=== PATIENT | male | born 1935 | race Caucasian/White ===

== ENCOUNTER 2019-03-07 09:01 | Observation (INO) | payer MEDICARE, BC ==
[2019-03-07] MEDS ORDERED: HYDROmorphone 0.5 MG/0.5 ML Syringe IVPUSH PRN (09:29)
[2019-03-07] MEDS ORDERED: Sodium Chloride 0.9% 1,000 ML IV SCH (09:45)
[2019-03-07 09:52] LABS: CHLORIDE,CL 97 mmol/L (98-107); SODIUM,NA 137 mmol/L (136-145)
--- NOTE | 2019-03-07 10:12 | EDM.PDOC ---
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 family would like him at [facility] with possible Onset: Gradual Duration: Week(s):, Getting Worse Location: Reports: Back Quality: Reports: Ache, Sharp Severity: Severe Improves with: Reports: Medication Worsens with: Reports: None Context: Reports: Activity Associated Symptoms: Reports: No Other Symptoms (`) - Related Data Allergies Allergy/AdvReac Type Severity Reaction Status Date / Time adhesive Allergy Rash Verified 03/07/19 09:45 metoprolol Allergy Bradycardia Verified 03/07/19 09:45 Home Meds: Home Meds atorvaSTATin Calcium [Lipitor] 40 mg PO BEDTIME 03/07/19 [History] ED ROS GENERAL - Review of Systems Review Of Systems: See Below Constitutional: Reports: Weakness, Fatigue, Other HEENT: Reports: No Symptoms Respiratory: Reports: Shortness of Breath (Shortness of breath was noted when he came in once he settled down he is much), Other (Back pain) Cardiovascular: Reports: No Symptoms Endocrine: Reports: Other (History of borderline diabetic) GI/Abdominal: Reports: No Symptoms : Reports: No Symptoms Musculoskeletal: Reports: Back Pain Skin: Reports: No Symptoms Neurological: Reports: Difficulty Walking, Weakness Psychiatric: Reports: Confusion, Hallucinations Hematologic/Lymphatic: Reports: No Symptoms ED EXAM, GENERAL - Physical Exam Exam: See Below Course - Vital Signs Last Recorded V/S: Last Vital Signs Temp 97.0 F 03/07/19 09:05 Pulse 89 03/07/19 09:05 Resp 20 03/07/19 09:05 BP 117/66 03/07/19 09:05 Pulse Ox 93 L 03/07/19 09:05 - Orders/Labs/Meds Orders: Active Orders 24 hr Category Date Time Status HYDROmorphone [Dilaudid] Med 03/07/19 09:29 Active 0.5 mg IVPUSH Q1H PRN Sodium Chloride 0.9% [Normal Saline] 1,000 ml Med 03/07/19 09:45 Active IV ASDIRECTED Sodium Chloride 0.9% [Saline Flush] Med 03/07/19 09:32 Active 10 ml FLUSH ASDIRECTED PRN Saline Lock Insert [OM.PC] Stat Oth 03/07/19 09:32 Ordered Medication Orders Hydromorphone HCl (Dilaudid) 0.5 mg IVPUSH Q1H PRN PRN Reason: Prostatic cancer Last Admin: 03/07/19 09:54 Dose: 0.5 mg Sodium Chloride (Normal Saline) 1,000 mls @ 150 mls/hr IV ASDIRECTED BRIAN Sodium Chloride (Saline Flush) 10 ml FLUSH ASDIRECTED PRN PRN Reason: Keep Vein Open Labs: Laboratory Tests 03/07/19 03/07/19 Range/Units 09:25 09:25 WBC 5.2 (4.0-10.2) K/uL RBC 4.10 L (4.33-5.41) M/uL Hgb 12.4 L D (13.1-16.8) g/dL Hct 36.0 L (39.0-49.0) % MCV 87.8 D (84.0-98.0) fL MCH 30.2 (28.2-33.3) pg MCHC 34.4 (31.7-36.0) g/dL RDW 12.5 (11.2-14.1) % Plt Count 190 (150-350) K/uL Neut % (Auto) 65.2 (45.0-80.0) % Lymph % (Auto) 19.4 (10.0-50.0) % [place] % (Auto) 14.8 H (2.0-14.0) % Eos % (Auto) 0.4 (0.0-5.0) % Baso % (Auto) 0.2 (0.0-2.0) % Neut # (Auto) 3.36 (1.40-7.00) K/uL Lymph # (Auto) 1.00 (0.50-3.50) K/uL [place] # (Auto) 0.76 (0.00-1.00) K/uL Eos # (Auto) 0.02 (0.00-0.50) K/uL Baso # (Auto) 0.01 (0.00-0.20) K/uL Sodium 137 (136-145) mmol/L Potassium 3.8 (3.5-5.1) mmol/L Chloride 97 L (98-107) mmol/L Carbon Dioxide 24.2 (21.0-32.0) mmol/L BUN 21 H (7-18) mg/dL Creatinine 1.14 (0.51-1.17) mg/dL Est Cr Clr Drug Dosing 51.58 mL/min Estimated GFR (MDRD) > 60 mL/min Glucose 114 H (74-106) mg/dL Calcium 13.1 H* D (8.5-10.1) mg/dL Total Bilirubin 1.2 H (0.2-1.0) mg/dL AST 41 H (15-37) U/L ALT 22 (12-78) U/L Alkaline Phosphatase 194 H (46-116) IU/L C-Reactive Protein 1.0 H (<=0.9) mg/dL Total Protein 7.6 (6.4-8.2) g/dL Albumin 3.7 (3.4-5.0) g/dL Meds: Medications Generic Name Dose Route Start Last Admin Trade Name Freq PRN Reason Stop Dose Admin Hydromorphone HCl 0.5 mg 03/07/19 09:29 03/07/19 09:54 Dilaudid IVPUSH 0.5 mg Q1H PRN Administration Prostatic cancer Sodium Chloride 1,000 mls @ 150 mls/hr 03/07/19 09:45 Normal Saline IV ASDIRECTED BRIAN Sodium Chloride 10 ml 03/07/19 09:32 Saline Flush FLUSH ASDIRECTED PRN Keep Vein Open Departure - Departure Time of Disposition: 10:27 Disposition: Refer to Observation Condition: Poor Clinical Impression: Chronic back pain, Prostate cancer metastatic to bone - Discharge Information *PRESCRIPTION DRUG MONITORING PROGRAM REVIEWED*: No *COPY OF PRESCRIPTION DRUG MONITORING REPORT IN PATIENT OMARI: No Referrals: Shawnee Rodríguez PA-C [Primary Care Provider] - - Problem List & Annotations (1) Chronic back pain SNOMED Code(s): 856771104 Code(s): M54.9 - DORSALGIA, UNSPECIFIED; G89.29 - OTHER CHRONIC PAIN Status : Acute Current Visit: Yes Qualifiers: Back pain location: low back pain Back pain laterality: midline Sciatica presence: without sciatica Qualified Code(s): M54.5 - Low back pain; G89.29 - Other chronic pain - Problem List Review Problem List Initiated/Reviewed/Updated: Yes - My Orders Last 24 Hours: My Active Orders 03/07/19 09:29 HYDROmorphone [Dilaudid] 0.5 mg IVPUSH Q1H PRN 03/07/19 09:32 Sodium Chloride 0.9% [Saline Flush] 10 ml FLUSH ASDIRECTED PRN Saline Lock Insert [OM.PC] Stat 03/07/19 09:45 Sodium Chloride 0.9% [Normal Saline] 1,000 ml IV ASDIRECTED - Assessment/Plan Last 24 Hours: My Active Orders 03/07/19 09:29 HYDROmorphone [Dilaudid] 0.5 mg IVPUSH Q1H PRN 03/07/19 09:32 Sodium Chloride 0.9% [Saline Flush] 10 ml FLUSH ASDIRECTED PRN Saline Lock Insert [OM.PC] Stat 03/07/19 09:45 Sodium Chloride 0.9% [Normal Saline] 1,000 ml IV ASDIRECTED Plan: Patient will be admitted to observation and attempts to place him in a long-term once stable
[2019-03-07] MEDS ORDERED: IBUPROFEN 400 MG PO PRN (11:44)
[2019-03-07] MEDS ORDERED: Nitroglycerin 0.4 MG Tab.SL SL PRN (11:44)
[2019-03-07] MEDS ORDERED: Acetaminophen/HYDROcodone 325-5 MG Tab PO PRN (11:44)
[2019-03-07] MEDS ORDERED: Warfarin 5 MG Tab PO SCH ×2 (11:45→18:00)
[2019-03-07] MEDS ORDERED: Sodium Chloride 0.9% 500 ML IV SCH (11:45)
[2019-03-07] MEDS: Ondansetron 4 MG/2 ML SDV IVPUSH SCH ×2 (12:09→16:48)
[2019-03-07] MEDS: HYDROmorphone 0.5 MG/0.5 ML Syringe IVPUSH PRN ×3 (12:12→16:17)
[2019-03-07] MEDS ORDERED: Ibuprofen 400 MG Tab PO PRN (13:29)
[2019-03-07] MEDS: Sodium Chloride 0.9% 1,000 ML IV SCH (16:49)
[2019-03-07] MEDS ORDERED: Losartan 50 MG Tab PO SCH (18:00)
[2019-03-07] MEDS ORDERED: atorvaSTATin 40 MG Tab PO SCH (18:00)
[2019-03-07] MEDS ORDERED: Enoxaparin 40 MG/0.4 ML Syringe SUBCUT ONE (20:32)
[2019-03-07] MEDS: levETIRAcetam 500 MG Tab PO SCH (21:29)
[2019-03-07] MEDS: Oxybutynin 5 MG Tab PO SCH (21:29)
[2019-03-07 23:58] VITALS: PULSE 60
[2019-03-08] MEDS: Ondansetron 4 MG/2 ML SDV IVPUSH SCH ×4 (00:02→12:50)
[2019-03-08] MEDS: HYDROmorphone 0.5 MG/0.5 ML Syringe IVPUSH PRN ×4 (01:02→12:22)
[2019-03-08] MEDS: Sodium Chloride 0.9% 1,000 ML IV SCH (03:03)
[2019-03-08 07:22] VITALS: BP 186/67
[2019-03-08] MEDS: Sodium Chloride 0.9% 10 ML Syringe FLUSH PRN ×2 (07:53→12:22)
[2019-03-08] MEDS ORDERED: Lactobacillus Rhamnosus GG (Probiotic) Cap PO SCH (08:00)
[2019-03-08] MEDS ORDERED: Garlic [Garlic] 1,000 MG PO SCH (08:00)
[2019-03-08] MEDS ORDERED: Non-Formulary Medication 1 Each (Isosorbide Mononitrate [Isosorbide Mononitrate Er] 120 MG PO SCH (08:00)
[2019-03-08] MEDS ORDERED: Non-Formulary Medication 1 Each (L.Acidoph,Paracasei, B.Lactis [Probiotic] 1 CAP) PO SCH (08:00)
[2019-03-08] MEDS ORDERED: Isosorbide Mononitrate 60 MG Tab.ER PO SCH (08:00)
[2019-03-08] MEDS: levETIRAcetam 500 MG Tab PO SCH (08:16)
[2019-03-08] MEDS: Oxybutynin 5 MG Tab PO SCH (08:17)
--- NOTE | 2019-03-08 09:21 | PCM.DCSUM1 ---
Discharge Summary - Hospital Course Diagnosis: Stroke: No - Discharge Data Discharge Date: 03/08/19 Discharge Disposition: Home, Self-Care 01 Condition: Good - Referral to Home Health Primary Care Physician: Shawnee Rodríguez PA-C - Discharge Diagnosis/Problem(s) (1) Chronic back pain SNOMED Code(s): 611970361 ICD Code: M54.9 - DORSALGIA, UNSPECIFIED; G89.29 - OTHER CHRONIC PAIN Status: Acute Current Visit: Yes Qualifiers: Back pain location: low back pain Back pain laterality: midline Sciatica presence: without sciatica Qualified Code(s): M54.5 - Low back pain; G89.29 - Other chronic pain - Patient Summary/Data Hospital Course: Patient was admitted to the hospital for pain control during his hospital stay it was noted that the patient was retaining significant amount of urine and we did decide to put a [place] catheter for comfort care at this time pain seems to be controlled we'll send him to [place] with Dilaudid this may be needed this may need to be adjusted if breakthrough pain - Patient Instructions Diet: Heart Healthy Diet Activity: As Tolerated Driving: Do Not Drive Showering/Bathing: May Shower - Discharge Plan *PRESCRIPTION DRUG MONITORING PROGRAM REVIEWED*: No *COPY OF PRESCRIPTION DRUG MONITORING REPORT IN PATIENT OMARI: No Home Medications: Home Meds Calcium Carbonate 500 mg PO BID 03/07/19 [History] Cholecalciferol (Vitamin D3) [Vitamin D3] 2 tab PO DAILY 03/07/19 [History] Garlic 1,000 mg PO DAILY 03/07/19 [History] Hydrocodone/Acetaminophen [Hydrocodon-Acetaminophen 5-325] 2 tab PO Q6HR PRN 08/20 [History] Ibuprofen 400 mg PO Q4HR PRN 03/07/19 [History] Isosorbide Mononitrate [Isosorbide Mononitrate ER] 120 mg PO DAILY 03/07/19 [ History] L.acidoph,Paracasei, B.lactis [Probiotic] 1 cap PO DAILY 03/07/19 [History] Losartan Potassium 100 mg PO QPM 03/07/19 [History] Naproxen Sodium [Aleve] 2 tab PO Q12HR PRN 03/07/19 [History] Nitroglycerin [Nitrostat] 0.4 mg SL ASDIRECTED PRN 03/07/19 [History] Oxybutynin 5 mg PO BID 03/07/19 [History] Warfarin [Coumadin] 5 mg PO ASDIRECTED 03/07/19 [History] atorvaSTATin Calcium [Lipitor] 40 mg PO QPM 03/07/19 [History] levETIRAcetam [Keppra] 750 mg PO BID 03/07/19 [History] Forms: ED Department Discharge Referrals: Shawnee Rodríguez PA-C [Primary Care Provider] - - Discharge Summary/Plan Comment DC Time >30 min.: No - General Info Functional Status: Reports: Pain Controlled - Review of Systems General: Reports: Weakness HEENT: Reports: No Symptoms Pulmonary: Reports: No Symptoms Cardiovascular: Reports: No Symptoms Gastrointestinal: Reports: No Symptoms Genitourinary: Reports: No Symptoms Musculoskeletal: Reports: Back Pain (Secondary to metastasis from prostate cancer) Skin: Reports: No Symptoms Neurological: Reports: No Symptoms Psychiatric: Reports: Confusion - Patient Data Vitals - Most Recent: Last Vital Signs Temp 98.2 F 03/08/19 07:22 Pulse 60 03/08/19 07:22 Resp 17 03/08/19 07:22 BP 186/67 H 03/08/19 07:22 Pulse Ox 100 03/08/19 07:22 Weight - Most Recent: 175 lb 9.6 oz I&O - Last 24 hours: Intake & Output 03/07/19 03/08/19 03/08/19 22:59 06:59 14:59 Intake Total 1262 768 100 Output Total 1000 400 Balance 262 368 100 Lab Results - Last 24 hrs: Laboratory Results - last 24 hr 03/07/19 03/07/19 03/07/19 Range/Units 09:25 09:25 10:20 WBC 5.2 (4.0-10.2) K/uL RBC 4.10 L (4.33-5.41) M/uL Hgb 12.4 L D (13.1-16.8) g/dL Hct 36.0 L (39.0-49.0) % MCV 87.8 D (84.0-98.0) fL MCH 30.2 (28.2-33.3) pg MCHC 34.4 (31.7-36.0) g/dL RDW 12.5 (11.2-14.1) % Plt Count 190 (150-350) K/uL Neut % (Auto) 65.2 (45.0-80.0) % Lymph % (Auto) 19.4 (10.0-50.0) % [place] % (Auto) 14.8 H (2.0-14.0) % Eos % (Auto) 0.4 (0.0-5.0) % Baso % (Auto) 0.2 (0.0-2.0) % Neut # (Auto) 3.36 (1.40-7.00) K/uL Lymph # (Auto) 1.00 (0.50-3.50) K/uL [place] # (Auto) 0.76 (0.00-1.00) K/uL Eos # (Auto) 0.02 (0.00-0.50) K/uL Baso # (Auto) 0.01 (0.00-0.20) K/uL PT (9.5-12.0) SEC INR Sodium 137 (136-145) mmol/L Potassium 3.8 (3.5-5.1) mmol/L Chloride 97 L (98-107) mmol/L Carbon Dioxide 24.2 (21.0-32.0) mmol/L BUN 21 H (7-18) mg/dL Creatinine 1.14 (0.51-1.17) mg/dL Est Cr Clr Drug Dosing 51.58 mL/min Estimated GFR (MDRD) > 60 mL/min Glucose 114 H (74-106) mg/dL Calcium 13.1 H* D (8.5-10.1) mg/dL POC WB Ioniz Calcium 1.62 POC Ioniz Calcium Armando Cancelled Total Bilirubin 1.2 H (0.2-1.0) mg/dL AST 41 H (15-37) U/L ALT 22 (12-78) U/L Alkaline Phosphatase 194 H (46-116) IU/L C-Reactive Protein 1.0 H (<=0.9) mg/dL Total Protein 7.6 (6.4-8.2) g/dL Albumin 3.7 (3.4-5.0) g/dL Specimen Type Urine Color Urine Appearance Urine pH (5.0-9.0) Ur Specific [place] (1.005-1.030) Urine Protein (NEGATIVE) mg/dL Urine Glucose (UA) (NEGATIVE) mg/dL Urine Ketones (NEGATIVE) mg/dL Urine Occult Blood (NEGATIVE) Urine Nitrite (NEGATIVE) Urine Bilirubin (NEGATIVE) Urine Urobilinogen (0.2-1.0) E.U./dL Ur Leukocyte Esterase (NEGATIVE) Urine RBC /HPF Urine WBC /HPF Ur Epithelial Cells /LPF Amorphous Sediment (0/HPF) /HPF Urine Bacteria (NONE TO FEW) /HPF 03/07/19 03/07/19 Range/Units 10:20 14:50 WBC (4.0-10.2) K/uL RBC (4.33-5.41) M/uL Hgb (13.1-16.8) g/dL Hct (39.0-49.0) % MCV (84.0-98.0) fL MCH (28.2-33.3) pg MCHC (31.7-36.0) g/dL RDW (11.2-14.1) % Plt Count (150-350) K/uL Neut % (Auto) (45.0-80.0) % Lymph % (Auto) (10.0-50.0) % [place] % (Auto) (2.0-14.0) % Eos % (Auto) (0.0-5.0) % Baso % (Auto) (0.0-2.0) % Neut # (Auto) (1.40-7.00) K/uL Lymph # (Auto) (0.50-3.50) K/uL [place] # (Auto) (0.00-1.00) K/uL Eos # (Auto) (0.00-0.50) K/uL Baso # (Auto) (0.00-0.20) K/uL PT 33.2 H (9.5-12.0) SEC INR 3.1 Sodium (136-145) mmol/L Potassium (3.5-5.1) mmol/L Chloride (98-107) mmol/L Carbon Dioxide (21.0-32.0) mmol/L BUN (7-18) mg/dL Creatinine (0.51-1.17) mg/dL Est Cr Clr Drug Dosing mL/min Estimated GFR (MDRD) mL/min Glucose (74-106) mg/dL Calcium (8.5-10.1) mg/dL POC WB Ioniz Calcium POC Ioniz Calcium Armando Total Bilirubin (0.2-1.0) mg/dL AST (15-37) U/L ALT (12-78) U/L Alkaline Phosphatase (46-116) IU/L C-Reactive Protein (<=0.9) mg/dL Total Protein (6.4-8.2) g/dL Albumin (3.4-5.0) g/dL Specimen Type . Urine Color Light yellow Urine Appearance Clear Urine pH 8.5 (5.0-9.0) Ur Specific Edson 1.015 (1.005-1.030) Urine Protein Negative (NEGATIVE) mg/dL Urine Glucose (UA) Negative (NEGATIVE) mg/dL Urine Ketones Trace H (NEGATIVE) mg/dL Urine Occult Blood Moderate H (NEGATIVE) Urine Nitrite Negative (NEGATIVE) Urine Bilirubin Negative (NEGATIVE) Urine Urobilinogen 0.2 (0.2-1.0) E.U./dL Ur Leukocyte Esterase Negative (NEGATIVE) Urine RBC 10-20 H /HPF Urine WBC 0-5 /HPF Ur Epithelial Cells Rare /LPF Amorphous Sediment Few (0/HPF) /HPF Urine Bacteria Few (NONE TO FEW) /HPF Med Orders - Current: Current Medications Hydrocodone Bitart/Acetaminophen ([place] 325-5 Mg) 2 tab PO Q6HR PRN PRN Reason: Pain Last Admin: 03/08/19 05:53 Dose: 2 tab Atorvastatin Calcium (Lipitor) 40 mg PO QPM [facility] Last Admin: 03/07/19 21:29 Dose: Not Given Hydromorphone HCl (Dilaudid) 0.5 mg IVPUSH Q2H PRN PRN Reason: Pain seems controlled after fi Last Admin: 03/08/19 07:51 Dose: 0.5 mg Sodium Chloride (Normal Saline) 1,000 mls @ 150 mls/hr IV ASDIRECTED [facility] Last Admin: 03/07/19 09:55 Dose: 150 mls/hr Sodium Chloride (Normal Saline) 1,000 mls @ 100 mls/hr IV ASDIRECTED [facility] Last Admin: 03/08/19 03:03 Dose: 100 mls/hr Ibuprofen (Motrin) 400 mg PO Q4HR PRN PRN Reason: Pain Isosorbide Mononitrate (Imdur) 120 mg PO DAILY [facility] Last Admin: 03/08/19 08:23 Dose: Not Given Lactobacillus Rhamnosus (Culturelle) 1 cap PO DAILY [facility] Last Admin: 03/08/19 08:23 Dose: Not Given Levetiracetam (Keppra) 750 mg PO BID [facility] Last Admin: 03/08/19 08:16 Dose: 750 mg Losartan Potassium (Cozaar) 100 mg PO QPM [facility] Last Admin: 03/07/19 21:29 Dose: Not Given Naproxen (Naproxen Sodium) 440 mg PO Q12HR PRN PRN Reason: Pain Nitroglycerin (Nitrostat) 0.4 mg SL ASDIRECTED PRN PRN Reason: Chest Pain Garlic [Garlic] 1, (000 Mg) 1,000 mg PO DAILY [facility] Last Admin: 03/08/19 08:23 Dose: Not Given Ondansetron HCl (Zofran) 4 mg IVPUSH Q6H [facility] Last Admin: 03/08/19 05:22 Dose: Not Given Oxybutynin Chloride (Oxybutynin) 5 mg PO BID [facility] Last Admin: 03/08/19 08:17 Dose: 5 mg Sodium Chloride (Saline Flush) 10 ml FLUSH ASDIRECTED PRN PRN Reason: Keep Vein Open Last Admin: 03/08/19 07:53 Dose: 10 ml Warfarin Sodium (Coumadin) 5 mg PO MoTu@1800 [facility] Stop: 03/08/19 18:01 Last Admin: 03/07/19 20:34 Dose: Not Given Discontinued Medications Enoxaparin Sodium (Lovenox) 40 mg SUBCUT ONETIME ONE Stop: 03/07/19 20:33 Last Admin: 03/07/19 21:29 Dose: 40 mg Hydromorphone HCl (Dilaudid) 0.5 mg IVPUSH Q1H PRN PRN Reason: Prostatic cancer Last Admin: 03/07/19 09:54 Dose: 0.5 mg Sodium Chloride (Normal Saline) 500 mls @ 100 mls/hr IV ASDIRECTED [facility] Non-Formulary Medication (Ibuprofen [Ibuprofen]) 400 mg PO Q4HR PRN PRN Reason: Pain Non-Formulary Medication (Isosorbide Mononitrate [Isosorbide Mononitrate Er]) 120 mg PO DAILY [facility] Non-Formulary Medication (L.Acidoph,Paracasei, B.Lactis [Probiotic]) 1 cap PO DAILY BRIAN Warfarin Sodium (Coumadin) 5 mg PO ASDIRECTED BRIAN - Exam Quality Assessment: Reports: Urine Catheter
== END 2019-03-08 13:35 ==
LOC: LL.ED 09:01 → UNDOADMOB 10:57 → LL.MS 10:57
PROVIDERS: ADMIT Family Medicine; ATTEND Family Medicine
DX: G89.3 Neoplasm related pain (acute) (chronic) (principal); C79.51 Secondary malignant neoplasm of bone; C61 Malignant neoplasm of prostate; Z88.8 Allergy status to other drugs, medicaments and biological substances; Z79.01 Long term (current) use of anticoagulants; Z79.899 Other long term (current) drug therapy; Z91.048 Other nonmedicinal substance allergy status
CPT/HCPCS: 36415; 51702; 71045; 80053; 81001; 85025; 85610; 86140; 96361; 96372; 96374; 96375; 96376; 99284-25; A9270-GY; G0378; J1170; J1650; J2405; J7030